=== PATIENT | male | born 1940 | race Caucasian/White ===

== ENCOUNTER 2017-02-04 17:32 | Emergency (ER) | payer OTHER ==
--- NOTE | 2017-02-04 17:47 | PDOC ---
History of Present Illness - General History Source: Patient, Old Records Exam Limitations: No Limitations <Alisha Malik - Last Filed: 02/04/17 18:02> - General History Source: Patient Exam Limitations: No Limitations - History of Present Illness Initial Comments: The patient is a 76 year old male with a significant past medical history of hypertension, who presents to the emergency department, accompanied by son and daughter, today for further evaluation of an irregular throat sensation for 3 weeks. The patient states that his pain has been worsening for the last week. The patient states that after he eats he feels like there is food stuck in his throat. The patient saw a doctor today who prescribed him pepcid. The patient reports mild alleviation of pain after taking the first dose of medication today. He also endorses two episodes of diarrhea yesterday and chronic upper back pain. The patient denies fever, chills, and sweats. The patient denies nausea, vomiting, and diarrhea. The patient denies chest pain, cough, and shortness of breath. PAST SURGICAL HISTORY: Right knee surgery FAMILY HISTORY: No pertinent history reported SOCIAL HISTORY: Former smoker ALLERGIES: As per nursing notes MEDICATIONS: Started pepcid today. Otherwise, as per nursing note. <Nik Patel - Last Filed: 02/04/17 19:07> - General Chief Complaint: Choking Sensation Stated Complaint: 3 WKS SWALLOWING DIFFICULTY, RIGHT UPPER BACK PAIN Time Seen by Provider: 02/04/17 17:46 Past History - Past Medical History Anemia: No Cardiac Disorders: No Diabetes: No HTN: Yes - Psycho/Social/Smoking Cessation Hx Anxiety: No Suicidal Ideation: No Smoking Status: No Smoking History: Never smoked Number of Cigarettes Smoked Daily: 0 Cigars Per Day: 0 Hx Alcohol Use: No Drug/Substance Use Hx: No Substance Use Type: None <Alisha Malik - Last Filed: 02/04/17 18:02> <Nik Patel - Last Filed: 02/04/17 19:07> - Past Medical History Allergies/Adverse Reactions: Allergies Allergy/AdvReac Type Severity Reaction Status Date / Time Penicillins Allergy Verified 11/21/15 10:00 shrimp Allergy Verified 11/21/15 10:00 Home Medications: Ambulatory Orders Amlodipine Besylate 5 mg PO DAILY 02/04/17 Famotidine [Pepcid] 40 mg PO DAILY 02/04/17 Lisinopril 5 mg PO DAILY 02/04/17 Oxybutynin Chloride [Oxybutynin Chloride ER] 10 mg PO DAILY 02/04/17 Terbinafine HCl [Lamisil] 250 mg PO DAILY 02/04/17 Review of Systems - Review of Systems Able to Perform ROS?: Yes Comments:: CONSTITUTIONAL: Absent: fever, chills, diaphoresis, generalized weakness, malaise, loss of appetite HEENT: Present: Throat pain Absent: rhinorrhea, nasal congestion, mouth swelling, ear pain, eye pain, visual Changes CARDIOVASCULAR: Absent: chest pain, syncope, palpitations, irregular heart rate, lightheadedness , peripheral edema RESPIRATORY: Absent: cough, shortness of breath, dyspnea with exertion, orthopnea, wheezing, stridor, hemoptysis GASTROINTESTINAL: Present: Diarrhea Absent: abdominal pain, abdominal distension, nausea, vomiting, constipation, melena, hematochezia GENITOURINARY: Absent: dysuria, frequency, urgency, hesitancy, hematuria, flank pain, genital pain MUSCULOSKELETAL: Present: Upper back pain Absent: Arthralgia, joint swelling SKIN: Absent: rash, itching, pallor HEMATOLOGIC/IMMUNOLOGIC: Absent: easy bleeding, easy bruising, lymphadenopathy, frequent infections ENDOCRINE: Absent: unexplained weight gain, unexplained weight loss, heat intolerance, cold intolerance NEUROLOGIC: Absent: headache, focal weakness or paresthesias, dizziness, unsteady gait, seizure, mental status changes, bladder or bowel incontinence PSYCHIATRIC: Absent: anxiety, depression, suicidal or homicidal ideation, hallucinations. <Nik Patel - Last Filed: 02/04/17 19:07> *Physical Exam - Vital Signs Last Vital Signs Temp Pulse Resp BP Pulse Ox 98.3 F 53 L 16 165/74 96 02/04/17 17:40 02/04/17 17:40 02/04/17 17:40 02/04/17 17:40 02/04/17 17:40 - Physical Exam Comments: GENERAL: Well developed, well nourished. Awake and alert. In no acute distress. HEENT: Normocephalic, atraumatic. PERRLA, EOMI. No conjunctival pallor. Sclera are non- icteric. Moist mucous membranes. Oropharynx is clear. NECK: Supple. Full ROM. No JVD. Carotid pulses 2+ and symmetric, without bruits. No thyromegaly. No lymphadenopathy. CARDIOVASCULAR: Regular rate and rhythm. No murmurs, rubs, or gallops. Distal pulses are 2+ and symmetric. PULMONARY: No evidence of respiratory distress. Lungs clear to auscultation bilaterally. No wheezing, rales or rhonchi. ABDOMINAL: Soft. Non-tender. Non-distended. No rebound or guarding. No organomegaly. Normoactive bowel sounds. MUSCULOSKELETAL Normal range of motion at all joints. No bony deformities or tenderness. No CVA tenderness. EXTREMITIES: No cyanosis. No clubbing. No edema. No calf tenderness. SKIN: Warm and dry. Normal capillary refill. No rashes. No jaundice. NEUROLOGICAL: Alert, awake, appropriate. Cranial nerves 2-12 intact. No deficits to light touch and temperature in face, upper extremities and lower extremities. No motor deficits in the in face, upper extremities and lower extremities. Normoreflexic in the upper and lower extremities. Normal speech. Toes are downgoing bilaterally. Gait is normal without ataxia. PSYCHIATRIC: Cooperative. Good eye contact. Appropriate mood and affect. <Nik Patel - Last Filed: 02/04/17 19:07> Heart Score/ECG Review - ECG Impressions Comment:: Sinus bradycardia. Septal infarct, age undetermined. Abnormal ECG. <Nik Patel - Last Filed: 02/04/17 19:07> ED Treatment Course - RADIOLOGY Radiograph Interpretation: 02/04/17 19:05 EXAM: Chest X-ray. Impression: No official reading at time of discharge. <Nik Patel - Last Filed: 02/04/17 19:07> Medical Decision Making - Medical Decision Making 02/04/17 18:03 76-year-old male with history of hypertension presents the emergency Department with complaints of 3 week history of sensation that food gets stuck when he eats solids. Differential diagnosis includes but is not limited to: Esophageal spasm, esophageal stricture, esophageal web, GERD. Plan: 1. Chest x-ray 2. EKG 3. Continue famotidine 4. Referred to gastroenterology for GI workupbarium swallow versus endoscopy 5. Return to the ED if symptoms persist, worsen, or new symptoms arise. <Alisha Malik - Last Filed: 02/04/17 18:02> *DC/Admit/Observation/Transfer - Discharge Dispostion Admit: No - Attestations Physician Attestion: 02/04/17 18:05 I, Dr. Alisha Malik, attest that the scribes documentation that appears above has been prepared under my direction and personally reviewed by me in its entirety. I confirmed that the note above accurately reflects all work, treatment, procedures, and medical decision-making performed by me. <Alisha Malik - Last Filed: 02/04/17 18:02> - Attestations Scribe Attestion: Documentation prepared by Nik Patel, acting as adjunct faculty for medical terminology for Alisha Malik MD. <Nik Patel - Last Filed: 02/04/17 19:07> Diagnosis at time of Disposition: Dysphagia - Discharge Dispostion Disposition: HOME Condition at time of disposition: Stable - Patient Instructions Printed Discharge Instructions: DI for Esophageal Dysphagia Additional Instructions: You may follow-up with Dr. Milligan (Carousel Attendant) [phone] and please keep your appointment with your primary care physician. Continue to take the famotidine as prescribed. Return to the ED if your symptoms persist, worsen or new symptoms arise.
[2017-02-04 17:53] VITALS: BP 165/74; PULSE 53; TEMP 98.3; BMI 25.7
--- NOTE | 2017-02-05 08:08 | EKG ---
Test Reason : Blood Pressure : / mmHG Vent. Rate : 048 BPM Atrial Rate : 048 BPM P-R Int : 150 ms QRS Dur : 092 ms QT Int : 426 ms P-R-T Axes : 047 039 042 degrees QTc Int : 380 ms SINUS BRADYCARDIA CANNOT RULE OUT SEPTAL INFARCT , AGE UNDETERMINED ABNORMAL ECG NO PREVIOUS ECGS AVAILABLE Confirmed by SAMSON BETTS MD ([id number]) on 02/05/2017 8:08:00 AM Referred By: DR WALLS Confirmed By:SAMSON BETTS MD
== END 2017-02-04 19:16 | disposition home or self-care (01) ==
LOC: FER 17:32
DX: R13.10 Dysphagia, unspecified (principal); I10 Essential (primary) hypertension
CPT/HCPCS: 71020-TC; 93005; 99283-25

== ENCOUNTER 2018-03-01 11:56 | Emergency (ER) | payer OTHER ==
[2018-03-01 12:27] VITALS: TEMP 98.8; BMI 29.2
--- NOTE | 2018-03-01 13:20 | PDOC ---
History of Present Illness - General Chief Complaint: Lightheaded Stated Complaint: DIZZY Time Seen by Provider: 03/01/18 12:00 History Source: Patient, Family (son at bedside) Exam Limitations: No Limitations - History of Present Illness Initial Comments: 03/01/18 13:15 77-year-old male with history of hypertension and high cholesterol presents for episode of lightheadedness this morning. Patient was in his usual state of normal health, about 8 days ago began having episodes of right-sided ear discomfort/tenderness that is intermittent, last episode was probably 2 days ago. The patient has had recurrence of this in the past, but never required intervention and it usually spontaneously resolved. No other nasal congestion or URI symptoms, no other associated complaints and he was in his usual state of good health until he woke up this morning around 7 AM and was experiencing some dizziness/lightheadedness for about one hour. Describes slowly is lightheaded without associated headache/vision change/speech change/chest pain/ palpitations/near syncope/focal deficit/gait disturbance. There was no vertigo, there was no active tinnitus or ear discomfort. No neck pain, no other complaints of nausea or vomiting or diaphoresis. The systems lasted about one hour then resolved shortly after eating breakfast. He currently feels well, but family prompted his son to bring him to the emergency department. Son states patient appears at baseline and is moving and speaking normally. Past History - Past Medical History Allergies/Adverse Reactions: Allergies Allergy/AdvReac Type Severity Reaction Status Date / Time Penicillins Allergy Verified 03/01/18 12:19 shrimp Allergy Verified 03/01/18 12:19 Home Medications: Ambulatory Orders Amlodipine Besylate 5 mg PO DAILY 02/04/17 Famotidine [Pepcid] 40 mg PO DAILY 02/04/17 Lisinopril 5 mg PO DAILY 02/04/17 Oxybutynin Chloride [Oxybutynin Chloride ER] 10 mg PO DAILY 02/04/17 Terbinafine HCl [Lamisil] 250 mg PO DAILY 02/04/17 Anemia: No Cardiac Disorders: No COPD: No Diabetes: No Disorders: Yes (BPH) HTN: Yes - Suicide/Smoking/Psychosocial Hx Smoking Status: No Smoking History: Never smoked Have you smoked in the past 12 months: No Number of Cigarettes Smoked Daily: 0 Cigars Per Day: 0 Information on smoking cessation initiated: No Hx Alcohol Use: No Drug/Substance Use Hx: No Substance Use Type: None, Cocaine Review of Systems - Review of Systems Constitutional: No: Chills, Fever, Night Sweats, Unintentional Wgt. Loss HEENTM: No: Recent change in vision, Double Vision Respiratory: No: Cough, Shortness of Breath, SOB with Exertion Cardiac (ROS): Yes: Lightheadedness. No: Chest Pain, Edema, Palpitations, Syncope ABD/GI: No: Diarrhea, Nausea, Vomiting : Yes: Frequency (baseline nocturia from BPH). No: Dysuria Neurological: No: Headache, Tingling, Weakness, Unsteady Gait, Ataxia All Other Systems: Reviewed and Negative *Physical Exam - Vital Signs Last Vital Signs Temp Pulse Resp BP Pulse Ox 98.8 F 58 L 20 182/61 96 03/01/18 11:56 03/01/18 11:56 03/01/18 11:56 03/01/18 11:56 03/01/18 11:56 - Physical Exam Comments: 03/01/18 13:18 Blood pressure noted at 180/60, patient did not take his blood pressure medication this morning GENERAL: The patient is awake, alert, and fully oriented, in no acute distress. HEAD: Normal with no signs of trauma. EYES: PERRL, EOMI, sclera anicteric, conjunctiva clear with no pallor. ENT: oropharynx clear without exudates. Moist mucous membranes. NECK: Normal range of motion, supple without lymphadenopathy, JVD, or masses. LUNGS: Breath sounds equal, clear to auscultation bilaterally. No wheeze/ crackles. HEART: Regular rate and rhythm, normal S1 and S2 without murmur or rub. ABDOMEN: Soft/nontender/nondistended. BS wnl. No guarding or rebound. No palpable masses. No hepatosplenomegaly. EXTREMITIES: Normal range of motion, no edema. 2+ distal pulses. No cords, erythema, or tenderness. NEUROLOGICAL: Mental status: The patient is alert and oriented x3. Cranial nerves: Cranial nerves II through XII are intact Motor: The upper extremities are 5 over 5 in all muscle groups. The lower extremities are 5 over 5 in all muscle groups. No pronator drift. Sensation: Sensation is intact to light touch throughout. Cerebellar: Ceigiu-srowxe-dlfd is normal in both upper extremities. Heel-knee- daniel is normal in both lower extremities. Dizziness is not reproducible with Bhavna -Hallpike. Reflexes: 2+ and symmetric in the upper and lower extremities. Gait: Normal. Tandem gait is normal. PSYCH: Normal mood, normal affect. SKIN: Warm, Dry, no rashes or lesions noted. Heart Score/ECG Review #1 ECG reviewed & interpreted by me at: 13:19 General ECG Interpretation: Sinus Rhythm, Normal Rate (49), Normal Intervals ( qtc 406), No acute ischemic changes Compared to previous ECG there are: No significant change (c/w 02/04/17) ED Treatment Course - LABORATORY CBC & Chemistry Diagram: 03/01/18 13:14 03/01/18 13:14 - RADIOLOGY Radiology Studies Ordered: Category Date Time Status HEAD CT (STROKE) [CT] Stat CT Scan 03/01/18 12:35 Ordered Medical Decision Making - Medical Decision Making 03/01/18 13:20 77-year-old male with history of hypertension and high cholesterol presents with about one hour episode of lightheadedness this morning between 7 AM and 8 AM, now resolved. Presentation is not consistent with vertigo or central neurological process, his cardiopulmonary and neurological exams are normal. He is notably slightly hypertensive and bradycardic, possibly contributing to his symptoms. He feels well now and is well-appearing. We'll perform stroke workup including head CT and check labs including EKG EKG is sinus bradycardia without evidence of block or acute ischemia Rule out UTI given BPH If above is within normal limits, and patient continues to feel well, can have expedited outpatient workup with his primary physicians at the [facility] [place] 03/01/18 14:06 labs wnl, no leukocytosis or anemia, chem normal including trop, UA clear without evidence of infection, only blood likely 2/2 underlying known BPH. Pt alert, ambulating comfortably, feeling well. Agrees with d/c plan and clinic f/u, understands return criteria. *DC/Admit/Observation/Transfer Diagnosis at time of Disposition: Lightheaded - Discharge Dispostion Disposition: HOME Condition at time of disposition: Improved - Referrals Referrals: Nathaly Fofana RES [Resident] - - Patient Instructions Printed Discharge Instructions: DI for Dizziness-Nonvertigo Additional Instructions: Activity as tolerated. Stay hydrated. Blood tests, an EKG, a urine test, and a CAT scan of the head showed no acute abnormalities today. Continue your medications as previously prescribed by your physician. You should follow up with Dr. Allen as soon as possible regarding today's emergency department visit. Consider outpatient Echocardiogram and Carotid artery evaluation. Return to the emergency department for any new or concerning symptoms, particularly persistent or worsening lightheadedness, vision changes or speech changes or focal weakness, chest pain or palpitations or shortness of breath. - Post Discharge Activity
[2018-03-01 13:22] VITALS: BP 176/82; PULSE 47
[2018-03-01 13:32] LABS: BASO % 0.6 % (0-2.0); EOS % 3.6 % (0-4.5); HEMOGLOBIN 15.2 GM/dl (11.7-16.9); MCH 33.6 pg (25.7-33.7); MCHC 34.5 g/dl (32.0-35.9); MEAN CELL VOLUME 97.4 fl (80-96); MEAN PLT VOLUME 8.7 fl (7.5-11.1); NEUT % 64.8 % (42.8-82.8); PLATELET COUNT 222 K/MM3 (134-434); RBC 4.52 M/mm3 (4.00-5.60); RDW 13.7 % (11.9-15.9); WHITE BLOOD COUNT 7.2 K/mm3 (4.0-10.8)
[2018-03-01 13:56] LABS: URINE APPEARANCE Clear; URINE BILIRUBIN Negative (NEGATIVE); URINE GLUCOSE (UA) Negative (NEGATIVE); URINE KETONE Negative (NEGATIVE); URINE LEUK ESTERASE Negative (NEGATIVE); URINE NITRITE Negative (NEGATIVE); URINE PROTEIN Negative (NEGATIVE); URINE UROBILINOGEN 0.2 (0.2-1.0)
[2018-03-01 13:58] LABS: URINE COLOR AMBER
[2018-03-01 13:58] LABS: ALBUMIN 4.3 g/dl (3.5-5.0); ALK PHOS 46 U/L (32-92); ANION GAP 11 (8-16); BILIRUBIN,TOTAL 0.7 mg/dl (0.2-1.0); BLOOD UREA NITROGEN 19 mg/dl (7-18); CHLORIDE 104 mmol/L (98-107); CHOLESTEROL 148 mg/dl; CO2 22 mmol/L (22-28); GLUCOSE,RANDOM 94 mg/dl (74-106); HDL CHOLESTEROL 43 mg/dl (29-89); POTASSIUM 3.8 mmol/L (3.5-5.1); SGOT/AST 19 U/L (10-42); SGPT/ALT 20 U/L (10-40); SODIUM 137 mmol/L (136-145); TOT PROT 7.8 g/dl (6.4-8.3); TRIGLYCERIDES 166 mg/dl (35-160)
[2018-03-01 14:14] LABS: INR 1.06 (0.82-1.09); PROTHROMBIN TIME (PATIENT) 11.8 SEC (10.2-13.0)
[2018-03-01 14:21] LABS: URINE RBC 0-3 /hpf (0-3)
--- NOTE | 2018-03-01 15:13 | EKG ---
Test Reason : Blood Pressure : / mmHG Vent. Rate : 049 BPM Atrial Rate : 049 BPM P-R Int : 162 ms QRS Dur : 082 ms QT Int : 450 ms P-R-T Axes : 030 028 027 degrees QTc Int : 406 ms SINUS BRADYCARDIA SEPTAL INFARCT (CITED ON OR BEFORE 04-FEB-2017) ABNORMAL ECG WHEN COMPARED WITH ECG OF 04-FEB-2017 18:24, NO SIGNIFICANT CHANGE WAS FOUND Confirmed by Tin Mckeon ([id number]) on 03/01/2018 3:13:18 PM Referred By: Liane BRITO Confirmed By:Tin Mckeon
== END 2018-03-01 15:00 | disposition home or self-care (01) ==
LOC: FER 11:56
DX: R42 Dizziness and giddiness (principal); I10 Essential (primary) hypertension; E78.00 Pure hypercholesterolemia, unspecified
CPT/HCPCS: 36415; 70450-TC; 80053; 81003; 81015; 82465; 82550; 82553; 83718; 83721; 84478; 84484; 85025; 85610; 86850; 86900; 86901; 93005; 99284-25

== ENCOUNTER 2018-09-11 20:10 | Emergency (ER) | payer OTHER ==
--- NOTE | 2018-09-11 20:12 | PDOC ---
History of Present Illness - General History Source: Patient, Family Exam Limitations: No Limitations - History of Present Illness Initial Comments: 09/11/18 20:22 The patient is a 78 year old male with no past medical history here today for evaluation of left shoulder pain. The patient reports that he tried to lift something around 5 pm today when he felt a pain in his left shoulder that radiates down his arm and to his chest. He reports that his shoulder pain is worse to palpation. The patient also notes that his feet are swollen bilaterally. Patient denies headache, lightheadedness. Denies fever, chills. Denies shortness of breath. Denies nausea, vomiting, diarrhea, abdominal pain. Allergies: Penicillins, shrimp Social history: Patient reports quitting tobacco use 10 years ago Surgical history: left knee surgery PCP: none reported <Sridhar Pérez - Last Filed: 09/11/18 20:22> <Vivek Greer - Last Filed: 09/11/18 21:14> - General Chief Complaint: Pain Stated Complaint: PAIN Time Seen by Provider: 09/11/18 20:12 Past History <Sridhar Pérez - Last Filed: 09/11/18 20:22> - Past Medical History Anemia: No Cardiac Disorders: No COPD: No Diabetes: No Disorders: Yes (BPH) HTN: Yes - Suicide/Smoking/Psychosocial Hx Smoking Status: No Smoking History: Never smoked Have you smoked in the past 12 months: No Number of Cigarettes Smoked Daily: 0 Cigars Per Day: 0 Hx Alcohol Use: No Drug/Substance Use Hx: No Substance Use Type: None, Cocaine <Vivek Greer - Last Filed: 09/11/18 21:14> - Past Medical History Allergies/Adverse Reactions: Allergies Allergy/AdvReac Type Severity Reaction Status Date / Time Penicillins Allergy Verified 09/11/18 20:12 shrimp Allergy Verified 09/11/18 20:12 Home Medications: Ambulatory Orders Amlodipine Besylate 5 mg PO DAILY 02/04/17 Lisinopril 5 mg PO DAILY 02/04/17 Review of Systems - Review of Systems Able to Perform ROS?: Yes Comments:: 09/11/18 20:23 A complete review of 10 out of 10 review of systems is taken and is negative apart from what is previously mentioned below and in the HPI. <Sridhar Pérez - Last Filed: 09/11/18 20:22> *Physical Exam - Vital Signs Last Vital Signs Temp Pulse Resp BP Pulse Ox 97.8 F 72 18 174/74 H 98 09/11/18 20:13 09/11/18 20:13 09/11/18 20:13 09/11/18 20:13 09/11/18 20:13 - Physical Exam Comments: 09/11/18 20:27 Vitals: Triage vital signs reviewed General Appearance: No acute distress, well nourished, well developed Head: Atraumatic Neck: +reproducible tenderness to palpation. Supple; No nuchal rigidity Chest Wall: +reproducible tenderness to palpation Cardiac: Regular rate and rhythm, no murmurs, no rubs, no gallops Lungs: Clear to auscultation bilateral, good air movement bilaterally Abdomen: Soft, nondistended, normal bowel sounds, nontender to palpation Genitourinary: Rectal: Exam deferred Extremities: +reproducible tenderness to palpation of scapula. Full range of motion to all extremities, no cyanosis, clubbing, or edema Skin: Warm and dry, no rashes or lesions, no rash, no petechiae Neuro: AOX3; Cranial Nerves 2-12 grossly intact, Strength intact to all extremities, Sensation intact to all extremities, Psych: Normal mood, normal affect <Sridhar Pérez - Last Filed: 09/11/18 20:22> Moderate Sedation - Procedure Monitoring Vital Signs: Procedure Monitoring Vital Signs Temperature 97.8 F 09/11/18 20:13 Pulse Rate 72 09/11/18 20:13 Respiratory Rate 18 09/11/18 20:13 Blood Pressure 174/74 H 09/11/18 20:13 O2 Sat by Pulse Oximetry (%) 98 09/11/18 20:13 <Sridhar Pérez - Last Filed: 09/11/18 20:22> Heart Score/ECG Review - History History: Slightly suspicious - Electrocardiogram EKG: Non specific repolarization disturbance - Age Age: >/= 65 - Risk Factors Based on the list above the patient has:: No risk factors known - Troponin Troponin: </= normal limit - Score Heart Score - Total: 3 - ECG Impressions Comment:: 09/11/18 20:43 EKG performed at 2032 demonstrates normal sinus rhythm no ST elevations or T- wave inversions. Interpreted by me. <Vivek Greer - Last Filed: 09/11/18 21:14> ED Treatment Course - LABORATORY CBC & Chemistry Diagram: 09/11/18 20:25 09/11/18 20:25 <Vivek Greer - Last Filed: 09/11/18 21:14> Medical Decision Making - Medical Decision Making 09/11/18 20:22 The patient is a 78 year old male with no past medical history here today for evaluation of left shoulder pain. <Sridhar Pérez - Last Filed: 09/11/18 20:22> - Medical Decision Making 09/11/18 20:4 78 years old no past medical history presents to the ED with musculoskeletal neck shoulder chest discomfort after lifting a heavy object Pain is reproducible on examination but given patient's age and complaint of left chest and arm discomfort we'll check EKG 1 troponin given that his heart score risk is low We'll obtain x-ray treat pain with tramadol observe and reassess. Reevaluation chest x-ray negative for any acute pathology troponin negative history examination most consistent with muscular skeletal discomfort We'll discharge home with alternating Tylenol Motrin for 3 days and PCP follow- up. Findings, the need for follow-up and strict return instructions discussed with patient and family. <PercyVivke - Last Filed: 09/11/18 21:14> *DC/Admit/Observation/Transfer - Attestations Scribe Attestion: 09/11/18 20:27 Documentation prepared by BOBBY Cota, acting as medical attendant for Vivek Greer MD. <Sridhar Pérez - Last Filed: 09/11/18 20:22> - Discharge Dispostion Decision to Admit order: No <Vivek Greer - Last Filed: 09/11/18 21:14> Diagnosis at time of Disposition: Musculoskeletal pain - Discharge Dispostion Disposition: HOME - Referrals Referrals: Guero Beatty MD [Staff Physician] - - Patient Instructions Printed Discharge Instructions: Muscle Strain Additional Instructions: Ice affected areas 20 minutes on 20 minutes off. Alternate [id number] Tylenol and Motrin as directed on package for the next 3 days as needed for pain. Follow-up with your doctor or with orthopedics Dr. Beatty this week. Return to ED for any severe worsening symptoms or for any concerns.
[2018-09-11] MEDS ORDERED: ACETAMINOPHEN 1000 MG/100 ML VIAL (NON FORMULARY) IVPB ONE (20:13)
[2018-09-11 20:16] VITALS: BP 174/74; PULSE 72; TEMP 97.8; BMI 28.3
[2018-09-11] MEDS ORDERED: traMADol HCL 50 MG TABLET PO ONE (20:21)
[2018-09-11] MEDS ORDERED: traMADol HCL 50 MG TABLET ONE (20:30)
[2018-09-11 20:42] LABS: BASO % 0.7 % (0-2.0); EOS % 4.7 % (0-4.5); HEMATOCRIT 44.8 % (35.4-49); HEMOGLOBIN 14.7 GM/dl (11.7-16.9); LYMPH % 27.2 % (8-40); MCH 32.5 pg (25.7-33.7); MCHC 32.9 g/dl (32.0-35.9); MEAN CELL VOLUME 98.8 fl (80-96); MONO % 8.9 % (3.8-10.2); NEUT % 58.5 % (42.8-82.8); PLATELET COUNT 206 K/MM3 (134-434); RBC 4.53 M/mm3 (4.00-5.60); WHITE BLOOD COUNT 6.7 K/mm3 (4.0-10.8)
[2018-09-11 21:10] LABS: ALBUMIN 4.2 g/dl (3.5-5.0); ANION GAP 10 MMOL/L (8-16); BILIRUBIN,TOTAL 0.5 mg/dl (0.2-1.0); BLOOD UREA NITROGEN 22 mg/dl (7-18); CALCIUM 9.1 mg/dl (8.4-10.2); CHLORIDE 103 mmol/L (98-107); CO2 24 mmol/L (22-28); CREATININE 1.3 mg/dl (0.6-1.3); GLUCOSE,RANDOM 119 mg/dl (74-106); POTASSIUM 3.7 mmol/L (3.5-5.1); SGOT/AST 20 U/L (10-42); SGPT/ALT 15 U/L (10-40); SODIUM 137 mmol/L (136-145); TOT PROT 7.7 g/dl (6.4-8.3)
[2018-09-11 21:11] LABS: ALK PHOS 65 U/L (32-92)
--- NOTE | 2018-09-12 09:44 | EKG ---
Test Reason : Blood Pressure : / mmHG Vent. Rate : 061 BPM Atrial Rate : 061 BPM P-R Int : 166 ms QRS Dur : 084 ms QT Int : 420 ms P-R-T Axes : 036 016 026 degrees QTc Int : 422 ms NORMAL SINUS RHYTHM SEPTAL INFARCT (CITED ON OR BEFORE 04-FEB-2017) ABNORMAL ECG WHEN COMPARED WITH ECG OF 01-MAR-2018 13:19, NO SIGNIFICANT CHANGE WAS FOUND Confirmed by PIERCE HARVEY, EDWIN ([id number]) on 09/12/2018 9:44:24 AM Referred By: Confirmed By:EDWIN PELAYO MD
== END 2018-09-11 21:33 | disposition home or self-care (01) ==
LOC: FER 20:10
DX: M79.18 Myalgia, other site (principal)
CPT/HCPCS: 36415; 71045-TC-FY; 80053; 84484; 85025; 93005; 99284-25

== ENCOUNTER 2018-12-28 18:57 | Emergency (ER) | payer OTHER ==
[2018-12-28 19:02] VITALS: BP 158/90; PULSE 71; TEMP 98.1; BMI 27.6
[2018-12-28 20:26] LABS: BASO % 0.7 % (0-2.0); EOS % 3.7 % (0-4.5); HEMATOCRIT 40.3 % (35.4-49); HEMOGLOBIN 13.6 GM/dl (11.7-16.9); LYMPH % 27.6 % (8-40); MCH 32.9 pg (25.7-33.7); MCHC 33.7 g/dl (32.0-35.9); MEAN CELL VOLUME 97.6 fl (80-96); MEAN PLT VOLUME 8.8 fl (7.5-11.1); MONO % 8.6 % (3.8-10.2); NEUT % 59.4 % (42.8-82.8); PLATELET COUNT 213 K/MM3 (134-434); RBC 4.13 M/mm3 (4.00-5.60); RDW 12.9 % (11.9-15.9); WHITE BLOOD COUNT 5.8 K/mm3 (4.0-10.8)
[2018-12-28 20:38] LABS: ALBUMIN 4.1 g/dl (3.4-5.0); ALK PHOS 53 U/L (45-117); ANION GAP 9 MMOL/L (8-16); BILIRUBIN,TOTAL 0.7 mg/dl (0.2-1); BLOOD UREA NITROGEN 19 mg/dl (7-18); CALCIUM 8.9 mg/dl (8.5-10); CHLORIDE 104 mmol/L (98-107); CO2 25 mmol/L (21-32); CREATININE 0.9 mg/dl (0.55-1.3); GLUCOSE,RANDOM 97 mg/dl (74-106); POTASSIUM 3.4 mmol/L (3.5-5.1); SGOT/AST 14 U/L (15-37); SGPT/ALT 11 U/L (13-61); SODIUM 138 mmol/L (136-145); TOT PROT 7.2 g/dl (6.4-8.2)
--- NOTE | 2018-12-28 20:56 | PDOC ---
Documentation entered by Arjun Carrillo SCRIBE, acting as scribe for Tori Corral MD. Tori Corral MD: This documentation has been prepared by the Gerardo frausto Juan Manue, SCRIBE, under my direction and personally reviewed by me in its entirety. I confirm that the documentation accurately reflects all work, treatment, procedures, and medical decision making performed by me. History of Present Illness - General Chief Complaint: Shortness of Breath Stated Complaint: back pain,sob,unable to swallow x 1 month Time Seen by Provider: 12/28/18 19:25 History Source: Patient, Family Exam Limitations: No Limitations - History of Present Illness Initial Comments: 12/28/18 20:04 The patient is a 78 year old male, who presents to the ED complaining of bilateral upper back pain, headache, shortness of breath and difficulty swallowing for roughly a month. He reports that the shortness of breath is mild and usually accompanied with his difficulty swallowing. He notes that his back pain ranges from mild to moderate. He denies any kind of exacerbation of his back pain, it just comes and goes. He states that he has been more stressed out lately, mostly because he is unemployed and believes that his stress may be contributing. He denies any kind of trauma. The patient denies chest pain, and dizziness. Denies fever, chills, nausea, vomiting, diarrhea or constipation. Denies dysuria, frequency, urgency and hematuria. PAST MEDICAL HISTORY: BPH and HTN PAST SURGICAL HISTORY: no significant history FAMILY HISTORY: no pertinent history SOCIAL HISTORY: Pt lives with family and is retired MEDICATIONS: reviewed ALLERGIES: As per nursing notes General: No fevers or chills, no weakness, no weight loss HEENT: (+) Difficulty swallowing. No change in vision. No sore throat,. No ear pain CardioVascular: No chest pain or shortness of breath Respiratory: (+) Shortness of breath Gastrointestinal: no nausea, vomiting, diarrhea or constipation, No rectal bleeding Genitourinary: No dysuria, hematuria, or frequency Musculoskeletal: (+) Upper back pain. Neurologic: No headache, vertigo, dizziness or loss of consciousness Psychiatric: nor depression Skin: No rashes or easy bruising Endocrine: no increased thirst or abnormal weight change Allergic: no skin or latex allergy All other systems reviewed and normal General: Well-nourished well-developed individual, no acute distress HEENT: Throat: Normal, tonsils normal, no erythema or exudate Neck: Supple, no meningeal signs, no lymphadenopathy Eyes::Pupils equal reactive and round, extraocular motion intact Chest: Nontender to palpation Cardiac: S1-S2 normal, regular rate and rhythm, no murmurs rubs or gallops Respiratory: Lungs clear to auscultation bilateral Abdomen: Soft, nondistended, normal bowel sounds, nontender to palpation diffusely Extremities: Warm, dry, no cyanosis, clubbing, or edema Back: (+) Spasms and tenderness on palpation, upper bilateral shoulders and neck area, no cervical spinal tenderness. Skin: No rashes Neuro: Alert and oriented x3, nonfocal exam, grossly intact, normal gait Psych: Normal mood and affect Assessment plan: This is a 78-year-old male who is primary [place]-speaking so information was via an rn first assist/the medical billing clerk. Patient is a 78-year- old male brought in by his son for evaluation of upper back and bilateral lower neck pain. Patient has had the pain intermittently times approximately one month but not seen anybody for or really taken much of anything for it. Patient does admit to being under a significant amount of stress recently. Patient's exam was unremarkable with the exception of some bilateral upper back lower neck spasm. Workup initiated including chest x-ray, CBC, comp, EKG and cardiac enzymes. CBC showed a sinus bradycardia at a rate of [address]-T wave changes otherwise normal EKG. Chest x-ray was interpreted by me as no acute pathology. 12/28/18 21:05 Patient's workup was otherwise are normal unremarkable with a normal white count and chemistries with the exception of potassium of 3.4 so I gave patient 20 mEq of K-Dur. Patient discharged home will follow-up with his primary care doctor. Patient told to continue to take anti-inflammatories such as ibuprofen or Aleve. Past History - Past Medical History Allergies/Adverse Reactions: Allergies Allergy/AdvReac Type Severity Reaction Status Date / Time Penicillins Allergy Verified 12/28/18 18:59 shrimp Allergy Verified 12/28/18 18:59 Home Medications: Ambulatory Orders Amlodipine Besylate 10 mg PO DAILY 02/04/17 Lisinopril 5 mg PO DAILY 02/04/17 Oxybutynin Chloride [Ditropan Xl] 10 mg PO DAILY 12/28/18 Simvastatin 10 mg PO DAILY 12/28/18 Tamsulosin HCl 0.4 mg PO BID 12/28/18 Anemia: No Cardiac Disorders: No COPD: No Diabetes: No Disorders: Yes (BPH) HTN: Yes - Suicide/Smoking/Psychosocial Hx Smoking Status: No Smoking History: Never smoked Have you smoked in the past 12 months: No Number of Cigarettes Smoked Daily: 0 If you are a former smoker, when did you quit?: 10 yrs ago Cigars Per Day: 0 Hx Alcohol Use: No Drug/Substance Use Hx: No Substance Use Type: None, Cocaine *Physical Exam - Vital Signs Last Vital Signs Temp Pulse Resp BP Pulse Ox 98.1 F 71 20 158/90 99 12/28/18 18:58 12/28/18 18:58 12/28/18 18:58 12/28/18 18:58 12/28/18 18:58 ED Treatment Course - LABORATORY CBC & Chemistry Diagram: 12/28/18 20:00 12/28/18 20:00 - ADDITIONAL ORDERS Additional order review: Laboratory Results 12/28/18 12/28/18 12/28/18 20:00 20:00 20:00 Sodium 138 Potassium 3.4 L Chloride 104 Carbon Dioxide 25 Anion Gap 9 BUN 19 H Creatinine 0.9 Creat Clearance w eGFR 81.40 Random Glucose 97 Calcium 8.9 Total Bilirubin 0.7 AST 14 L ALT 11 L Alkaline Phosphatase 53 Creatine Kinase 109 Troponin I < 0.03 Total Protein 7.2 Albumin 4.1 12/28/18 20:00 RBC 4.13 MCV 97.6 H MCHC 33.7 RDW 12.9 MPV 8.8 Neutrophils % 59.4 Lymphocytes % 27.6 Monocytes % 8.6 Eosinophils % 3.7 Basophils % 0.7 - RADIOLOGY Radiology Studies Ordered: Category Date Time Status CHEST X-RAY PORTABLE* [RAD] Stat Radiology 12/28/18 19:53 Taken *DC/Admit/Observation/Transfer Diagnosis at time of Disposition: Neck muscle spasm - Discharge Dispostion Disposition: HOME Condition at time of disposition: Fair Decision to Admit order: No - Referrals - Patient Instructions Additional Instructions: For the discomfort in your neck and upper back take ibuprofen 2 tablets 3 times a day with food don't take on an empty stomach. Follow-up with your primary care doctor called him in the morning and make an appointment. Return to the emergency department immediately with ANY new, persistent or worsening symptoms. Continue any medications as previously prescribed by your physician. You should follow up with your primary doctor as soon as possible regarding today's emergency department visit. . Please make sure your doctor reviews the results of your emergency evaluation. Thank you for coming to the Emergency Department today for your care. It was a pleasure to see you today. Please note that your evaluation is INCOMPLETE until you follow-up with your doctor. - Post Discharge Activity - Attestations Scribe Attestion: 12/28/18 20:04 Documentation prepared by Arjun Carrillo, acting as medical massage therapist for Tori Corral MD
[2018-12-28] MEDS ORDERED: POTASSIUM CHLORIDE TABS 20 MEQ TABLET.ER (FP) PO ONE ×2 (21:04→21:11)
--- NOTE | 2018-12-29 12:10 | EKG ---
Test Reason : Blood Pressure : / mmHG Vent. Rate : 058 BPM Atrial Rate : 058 BPM P-R Int : 162 ms QRS Dur : 078 ms QT Int : 426 ms P-R-T Axes : 024 014 005 degrees QTc Int : 418 ms SINUS BRADYCARDIA CANNOT RULE OUT ANTEROSEPTAL INFARCT (CITED ON OR BEFORE 04-FEB-2017) ABNORMAL ECG WHEN COMPARED WITH ECG OF 11-SEP-2018 20:33, NO SIGNIFICANT CHANGE WAS FOUND Confirmed by KATHLEEN STEWART MD ([id number]) on 12/29/2018 12:09:39 PM Referred By: MANDY Confirmed By:KATHLEEN STEWART MD
== END 2018-12-28 21:16 | disposition home or self-care (01) ==
LOC: FER 18:57
DX: M62.838 Other muscle spasm (principal); I10 Essential (primary) hypertension; N40.0 Benign prostatic hyperplasia without lower urinary tract symptoms; Z87.891 Personal history of nicotine dependence
CPT/HCPCS: 36415; 71045-TC-FY; 80053; 82550; 84484; 85025; 93005; 99283-25

== ENCOUNTER 2019-01-26 10:42 | Emergency (ER) | payer OTHER ==
[2019-01-26 10:57] VITALS: BMI 27.3
[2019-01-26 11:02] VITALS: BP 147/78; PULSE 77; TEMP 99.1
[2019-01-26] MEDS ORDERED: KETOROLAC TROMETHAMINE 15 MG/ML VIAL IVPUSH ONE (11:31)
[2019-01-26] MEDS ORDERED: CYCLOBENZAPRINE HCL 5 MG TABLET PO ONE (11:31)
[2019-01-26] MEDS ORDERED: LIDOCAINE 5% TOPICAL PATCH TP ONE (11:31)
--- NOTE | 2019-01-26 11:44 | PDOC ---
History of Present Illness - General Chief Complaint: Pain, Acute Stated Complaint: BACK PAIN Time Seen by Provider: 01/26/19 10:54 History Source: Patient, Family Exam Limitations: No Limitations - History of Present Illness Initial Comments: 01/26/19 11:44 78 year old male, with h/o HTN, BPH, depression, chronic back pain who presents to the ED complaining of bilateral upper back pain, intermittent chest pains, dizziness and difficulty swallowing x 1 month. He reports that the shortness of breath is mild and usually accompanied with his difficulty swallowing. He also admits to intermittent left sided chest pain but recent episodes over 2 days, described as sharp and transient, no exacerbating or alleviating factors. Upper shoulder/back pain worse with movement and twisting, worse on left compared to right. He denies any kind of exacerbation of his back pain, no recent trauma but previously started with heavy lifting. He has had several ED visits with similar complaints with most recent about 1 month ago for ongoing back and neck pain, dx'd as spasms. of note, he was recently seen by physician 3 days ago in [facility], rxd meloxicam for his back pain. The patient denies chest pain, and dizziness. Denies fever, chills, nausea, vomiting, diarrhea or constipation. Denies dysuria, frequency, urgency and hematuria. No weakness or paresthesias. No leg pain, swelling or rashes. Able to ambulate without difficulty. No recent illnesses, changes in medications. Allergies: Penicillins, shrimp Social history: Patient reports quitting tobacco use 10 years ago Surgical history: left knee surgery PCP: Dr Madden 01/26/19 11:44 Past History - Past Medical History Allergies/Adverse Reactions: Allergies Allergy/AdvReac Type Severity Reaction Status Date / Time Penicillins Allergy Verified 01/26/19 10:43 shrimp Allergy Verified 01/26/19 10:43 Home Medications: Ambulatory Orders Amlodipine Besylate 10 mg PO DAILY 02/04/17 Lisinopril 5 mg PO DAILY 02/04/17 Oxybutynin Chloride [Ditropan Xl] 10 mg PO DAILY 12/28/18 Simvastatin 10 mg PO DAILY 12/28/18 Tamsulosin HCl 0.4 mg PO BID 12/28/18 Cyclobenzaprine HCl [Flexeril 10 mg] 10 mg PO BID PRN #12 tablet 01/26/19 Lidocaine 5% Patch [Lidoderm Patch -] 1 patch TP DAILY #7 patch 01/26/19 Anemia: No Cardiac Disorders: No COPD: No Diabetes: No Disorders: Yes (BPH) HTN: Yes - Suicide/Smoking/Psychosocial Hx Smoking Status: No Smoking History: Former smoker Have you smoked in the past 12 months: No Number of Cigarettes Smoked Daily: 0 If you are a former smoker, when did you quit?: 10 yrs ago Cigars Per Day: 0 Information on smoking cessation initiated: No Hx Alcohol Use: No Drug/Substance Use Hx: No Substance Use Type: None, Cocaine Review of Systems - Review of Systems Comments:: 01/26/19 11:45 Review of systems Constitutional: no fevers or chills. HEENT: +dizziness. no headache No congestion. No visual/hearing disturbances. + difficulty swallowing. no sore throat, no ear pain. CVS: +cp, no syncope. Resp: +sob. No cough. Gastrointestinal: no abdominal pain, nausea or vomiting. Genitourinary: no urinary sx, hematuria. MUSCULOSKELETAL: No joint pain and swelling. +neck or back pain. SKIN: no redness or skin changes, no discharge, no rash. No wounds. Hematologic: no easy bruising/bleeding. NEUROLOGIC: +dizziness. No headache, LOC or altered mental status. No weakness , numbness or tingling. Psych: +anxiety or depression Allergic/Immunologic: pcn and shrimp allergy All other systems reviewed and negative, or as documented in HPI. *Physical Exam - Vital Signs Last Vital Signs Temp Pulse Resp BP Pulse Ox 99.1 F 77 18 147/78 97 01/26/19 10:43 01/26/19 10:43 01/26/19 10:43 01/26/19 10:43 01/26/19 10:43 - Physical Exam Comments: 01/26/19 11:46 Physical exam: General: Well appearing, awake and alert, NAD. HEENT: NCAT, PERRL, EOMI, clear conjunctiva, anicteric, moist mucus membranes, clear oropharynx, no oral lesions.. Neck: neck supple, FROM Resp: CTAB, normal and even respirations, no respiratory distress CVS: RRR, no murmurs, 2+ peripheral pulses throughout, no peripheral edema Abdomen: soft, NTND, no peritoneal signs. Back: no midline tenderness, normal inspection and ROM; +bilateral lateral thoracic back TTP, left > right over scapular region. MSK: no edema, FOSTER x4, ROM intact. No clubbing or cyanosis. normal bulk and tone. Neuro: alert, no focal neuro deficits. speech clear. 5/5 culture media laboratory assistant, prox and distal strength in all extrem. SILT in all extrem. Skin: warm and well perfused, cap refill <2 sec, normal color Heart Score/ECG Review #1 ECG reviewed & interpreted by me at: 11:55 General ECG Interpretation: Sinus Rhythm, Normal Rate, Normal Intervals Compared to previous ECG there are: No significant change 01/26/19 12:56 EKG normal sinus rhythm at 68 bpm, no interval abnormalities, narrow QRS, ST and T wave segments and morphology normal. Nonspecific T wave abnormalities, unchanged from prior ED Treatment Course - LABORATORY CBC & Chemistry Diagram: 01/26/19 11:52 01/26/19 11:52 - RADIOLOGY Radiology Studies Ordered: Category Date Time Status CHEST PA & LAT [RAD] Stat Radiology 01/26/19 11:30 Ordered Medical Decision Making - Medical Decision Making 01/26/19 11:45 Patient is a 78-year-old male brought in by his son for evaluation of upper back and bilateral lower neck pain. Patient has had the pain intermittently times approximately 1-2 months, DDx chest pain: ACS, coronary vasospasm, NSTEMI, arrhythmia, unstable angina, PE , dissection, PUD, esophageal spasm, GERD, gastritis, costochondritis, pneumonia , pleurisy, dehydration, electrolyte/metabolic derangements. DDx back pain: back strain, radiculopathy, spinal stenosis. Muscle spasm. Lumbar radiculopathy. Patient's exam was unremarkable with the exception of some bilateral upper back pain worse on left side than right, similar to prior presentations. Workup initiated including chest x-ray, CBC, comp, EKG and cardiac enzymes. Chest x-ray no acute pathology. no effusion, mass or edema, infiltrate. unchanged apical lordotic projection EKG normal sinus rhythm at 68 bpm, no interval abnormalities, narrow QRS, ST and T wave segments and morphology normal. Nonspecific T wave abnormalities, unchanged from prior ED course: analgesia with topical agents, toradol, tylenol. flexeril for muscle relaxant chronicity of sx noted, prior ED visits reviewed no midline sx. no neuro deficits. feels better, improved ROM. normal labs/workup provided to patient, likely msk in etiology and prompt PCP followup meds/supportive care and side effect profile reviewed. Pt informed of my clinical impression, treatment recommendations and disposition plan. All questions answered to patient's satisfaction and expressed understanding and comfort with this. Reasons for returning to the ED sooner discussed including new or persistent/worsening symptoms with the patient otherwise, follow up with primary care physician. At the time of discharge, the patient is alert, clinically improved, tolerating po and verbalizes understanding of instructions, satisfied with the care received and felt comfortable with the plan. Patient does not suffer from an acute life- threatening medical condition at this time and is safe for outpatient follow- up. 01/26/19 12:56 *DC/Admit/Observation/Transfer Diagnosis at time of Disposition: Back pain, Chest pain - Discharge Dispostion Disposition: HOME Condition at time of disposition: Stable Decision to Admit order: No - Prescriptions Prescriptions: Cyclobenzaprine HCl [Flexeril 10 mg] 10 mg PO BID PRN #12 tablet PRN Reason: Muscle Spasms Lidocaine 5% Patch [Lidoderm Patch -] 1 patch TP DAILY #7 patch - Referrals Referrals: Ede Madden MD [Non Staff, Medical] - Ninfa Madden MD [Non Staff, Medical] - Vivek Madden MD [Non Staff, Medical] - - Patient Instructions Printed Discharge Instructions: DI for Atypical Chest Pain, DI for Thoracic Back Pain Additional Instructions: 1) Please follow-up with your primary care doctor Dr Madden in the next 1-2 days. Please call tomorrow for for any urgent issues. 2) You were given a copy of the tests performed today. Please bring the results with you and review them with your primary care doctor. Your laboratory / imaging results were normal, 3) If you have any worsening of symptoms or any other concerns please return to the ED immediately. Return if worsening symptoms including fevers, headache, vomiting, visual or hearing disturbances, abdominal pain, chest pain, shortness of breath, syncope, dehydration, inability to take things by mouth/vomiting, altered mental status, or worsening concerning symptoms. 4) Please continue taking your home medications as directed. your medications on discharge include flexeril twice a day as needed for spasms and lidoderm patch (which is also available over the counter) to be applied daily as needed for pain . side effects may include upset stomach, abdominal pain, vomiting, or diarrhea. do not drink alcohol with your medications. flexeril can also make you sleepy, so do not drive or operate machinery, and prevent falls by ensuring a safe environment with solid support system at home. Stay well hydrated and rest adequately. Make an appointment with your primary doctor. ------- 1) Ginger el seguimiento con bautista mdico de atencin primaria, el Dr. Madden, en los prximos 1 o 2 ram. Por favor llame maana para cualquier problema urgente. 2) Le dieron treasure copia de las pruebas realizadas hoy. Lleve los resultados con usted y revselos con bautista mdico de atencin primaria. Genesis resultados de laboratorio / imgenes fueron normales, 3) Si tiene algn empeoramiento de los sntomas o alguna otra inquietud, vuelva a la ED de inmediato. Regrese si los sntomas empeoran, incluyendo fiebre, dolor de sarah, vmitos, trastornos visuales o auditivos, dolor abdominal, dolor de pecho, falta de aliento, sncope, deshidratacin, incapacidad para ghassan cosas por la boca / vmitos, alteracin del estado mental o empeoramiento de los sntomas. 4) Por favor contine tomando genesis medicamentos caseros segn las indicaciones. genesis medicamentos en el momento del sharmila incluyen flexeril dos veces al da segn sea necesario para los espasmos y el parche de lidoderm (que tambin est disponible sin receta mdica) para aplicarse diariamente segn sea necesario para el dolor. los efectos secundarios pueden incluir malestar estomacal, dolor abdominal, vmitos o diarrea. No tome alcohol con genesis medicamentos. El flexeril tambin lo puede hacer dormir, as que no conduzca ni opere maquinaria, y evite las cadas al garantizar un ambiente seguro con un sistema de soporte slido en el hogar. Mantngase ginger hidratado y descanse adecuadamente. Ginger treasure george con bautista mdico de cabecera. Print Language: BENGALI - Post Discharge Activity
[2019-01-26] MEDS ORDERED: KETOROLAC TROMETHAMINE 15 MG/ML VIAL ONE (11:54)
[2019-01-26] MEDS ORDERED: CYCLOBENZAPRINE HCL 10 MG TABLET (FP) ONE (11:54)
[2019-01-26] MEDS ORDERED: LIDOCAINE 5% TOPICAL PATCH ONE (11:55)
[2019-01-26 12:28] LABS: BASO % 0.7 % (0-2.0); EOS % 0.6 % (0-4.5); HEMATOCRIT 42.3 % (35.4-49); HEMOGLOBIN 14.6 GM/dl (11.7-16.9); LYMPH % 14.5 % (8-40); MCH 33.7 pg (25.7-33.7); MCHC 34.5 g/dl (32.0-35.9); MEAN CELL VOLUME 97.8 fl (80-96); MEAN PLT VOLUME 8.9 fl (7.5-11.1); MONO % 6.4 % (3.8-10.2); NEUT % 77.8 % (42.8-82.8); PLATELET COUNT 228 K/MM3 (134-434); RBC 4.33 M/mm3 (4.00-5.60); RDW 12.8 % (11.9-15.9); WHITE BLOOD COUNT 6.6 K/mm3 (4.0-10.8)
[2019-01-26 12:36] LABS: ALBUMIN 4.3 g/dl (3.4-5.0); BILIRUBIN,TOTAL 1.1 mg/dl (0.2-1); CALCIUM 9.1 mg/dl (8.5-10); CREATININE 1.2 mg/dl (0.55-1.3); MAGNESIUM 2.1 mg/dL (1.8-2.4); POTASSIUM 3.6 mmol/L (3.5-5.1); TOT PROT 7.4 g/dl (6.4-8.2)
--- NOTE | 2019-01-26 13:15 | EKG ---
Test Reason : Blood Pressure : / mmHG Vent. Rate : 068 BPM Atrial Rate : 068 BPM P-R Int : 154 ms QRS Dur : 090 ms QT Int : 398 ms P-R-T Axes : 056 044 006 degrees QTc Int : 423 ms NORMAL SINUS RHYTHM SEPTAL INFARCT (CITED ON OR BEFORE 04-FEB-2017) ABNORMAL ECG WHEN COMPARED WITH ECG OF 28-DEC-2018 20:10, NO SIGNIFICANT CHANGE WAS FOUND Confirmed by TERRY HARVEY, KATHLEEN ([id number]) on 01/26/2019 1:15:11 PM Referred By: ASHLYN FLOREZ Confirmed By:KATHLEEN STEWART MD
== END 2019-01-26 13:04 | disposition home or self-care (01) ==
LOC: FER 10:42
PROC: 3E0333Z Introduction of Anti-inflammatory into Peripheral Vein, Percutaneous Approach (ICD-10-PCS; principal; 2019-01-26)
DX: M54.9 Dorsalgia, unspecified (principal); R07.9 Chest pain, unspecified; I10 Essential (primary) hypertension; N40.0 Benign prostatic hyperplasia without lower urinary tract symptoms; F32.9 Major depressive disorder, single episode, unspecified; G89.29 Other chronic pain; Z87.891 Personal history of nicotine dependence
CPT/HCPCS: 36415; 71046-TC-FY; 80053; 83735; 84484; 85025; 93005; 99282-25

== ENCOUNTER 2019-02-01 00:43 | Emergency (ER) | payer OTHER | END 2019-02-01 02:15 | disposition home or self-care (01) | LOC: FER 00:43 ==

== ENCOUNTER 2024-01-03 07:22 | Emergency (ER) | payer OTHER ==
[2024-01-03 08:03] VITALS: BP 151/67; PULSE 83; RESP 18; TEMP 99.4; BMI 27.5
[2024-01-03] MEDS ORDERED: predniSONE 20 MG TABLET (UD) ONE (08:09)
[2024-01-03] MEDS ORDERED: diphenhydrAMINE HCL 25 MG CAPSULE (FP) PO ONE (08:09)
[2024-01-03] MEDS ORDERED: FAMOTIDINE 20 MG TABLET ONE (08:10)
[2024-01-03] MEDS: diphenhydrAMINE HCL 25 MG CAPSULE (FP) PO ONE (08:15)
[2024-01-03] MEDS: FAMOTIDINE 10 MG TABLET PO ONE (08:15)
[2024-01-03] MEDS: predniSONE 20 MG TABLET (UD) PO ONE (08:15)
== END 2024-01-03 10:20 | disposition home or self-care (01) ==
LOC: FER 07:22
DX: L29.9 Pruritus, unspecified (principal); T78.40XA Allergy, unspecified, initial encounter
CPT/HCPCS: 99283-25

== ENCOUNTER 2024-08-03 13:09 | Emergency (ER) | payer OTHER ==
[2024-08-03 13:27] VITALS: BP 137/61; PULSE 55; RESP 20; TEMP 98.2; BMI 26.5
[2024-08-03 14:07] LABS: INR 1.03 (0.83-1.09); PROTHROMBIN TIME (PATIENT) 11.7 SEC (9.7-13.0)
[2024-08-03 14:10] LABS: ACTIVATED PTT 32.3 SECONDS (25.2-36.5)
[2024-08-03 14:19] LABS: HEMATOCRIT 38.9 % (35.4-49); HEMOGLOBIN 13.1 G/dL (11.7-16.9); MCH 33.2 pg (25.7-33.7); MCHC 33.6 g/dl (32.0-35.9); MEAN CELL VOLUME 98.9 fl (80-96); MEAN PLT VOLUME 8.7 fl (7.5-11.1); PLATELET COUNT 171.2 10^3/uL (134-434); RBC 3.93 10^6/uL (4.00-5.60); RDW 13.3 % (11.9-15.9)
[2024-08-03 14:23] LABS: PLATELET ESTIMATE ADEQUATE
[2024-08-03 14:29] LABS: ALBUMIN 4.2 g/dl (3.4-5.0); ALK PHOS 63 U/L (45-117); ANION GAP 8 mmol/L (4-13); BILIRUBIN,TOTAL 0.6 mg/dl (0.2-1); CHLORIDE 102 mmol/L (98-107); CO2 29 mmol/L (21-32); CREATININE 1.4 mg/dl (0.6-1.3); GLUCOSE,RANDOM 86 mg/dl (74-106); POTASSIUM 4.1 mmol/L (3.5-5.1); SGOT/AST 15 U/L (15-37); SGPT/ALT 14 U/L (7-52); SODIUM 139 mmol/L (136-145)
== END 2024-08-03 16:52 | disposition home or self-care (01) ==
LOC: FER 13:09
DX: R00.1 Bradycardia, unspecified (principal); R53.1 Weakness; K59.1 Functional diarrhea; Z20.822 Contact with and (suspected) exposure to COVID-19
CPT/HCPCS: 0241U-QW; 36415; 71045-TC-FY; 80053; 81003; 81015; 82550; 83605; 84443; 84484; 85027; 85610; 85730; 86140; 87040; 93005; 99285-25